=== PATIENT | male | born 1970 | race Caucasian/White ===

== ENCOUNTER 2019-05-25 08:25 | Day surgery (SDC) | payer BC, OTHER ==
[~2019-05-25] VITALS: Ht 167.6 cm; Wt 86.1 kg
[~2019-05-25 08:25] MED LIST: FERROUS SULFATE; MULTIVITAMINS; VITAMIN C
[2019-05-25 09:28] VITALS: Ht 167.6 cm; Wt 86.1 kg
[2019-05-25 09:39] VITALS: BP 138/89; PULSE 66; RESP 18
[2019-05-25] MEDS ORDERED: FENTAnyl 50 MCG/ML VIAL ONE (10:30)
[2019-05-25] MEDS ORDERED: MIDAZOLAM 1 MG/ML 2 ML INJ ONE ×2 (10:31)
[2019-05-25 10:45] VITALS: BP 123/81; RESP 16
--- NOTE | 2019-05-25 19:26 | CONS ---
DATE OF ADMISSION: 05/25/2019 DATE OF CONSULTATION: Dear Dr. London, I thank you very much for this kind referral. HISTORY OF PRESENT ILLNESS: Mr. Ab Camilo is a 48-year-old male patient who has been referred to [facility] for further evaluation of iron deficiency anemia. The patient also gives history of occasional rec spencer bleeding. He has change in the bowel habit and he has been taking fiber. He has lower abdominal pain. No past history of colon neoplasm. The patient never had screening colonoscopy. Appetite is good. No weight loss. No upper abdominal pain. Not on nonsteroidal anti-inflammatory agents. No history of gallstones or liver disease. No history of hypertension or diabetes, no heart disease, brunilda ng problem or kidney disease. SOCIAL HISTORY: Nonsmoker. No alcohol abuse. FAMILY HISTORY: No family history of gastrointestinal tract neoplasm. ALLERGIES: NO DRUG ALLERGIES. MEDICATIONS: 1. Ferrous sulfate. 2. Fiber PHYSICAL EXAMINATION: GENERAL: He is 5 feet 6 inches tall and weighs 192 pounds. HEART: Normal heart sounds. LUNGS: Clear. ABDOMEN: Soft, no masses. Normal bowel sounds. RECTAL: Deferred per the patient's request. It will be done at the time of colonoscopy. NEUROLOGIC: Normal neurological exam. IMPRESSION: 1. Change in the bowel habit. 2. Lower abdominal pain. 3. Occasional rectal bleeding. 4. Iron deficiency anemia. 5. The patient never had screening colonoscopy. PLAN: Colonoscopy for further evaluation. The procedure and possible complications are well explained to the patient. He understands and conse nts to the procedure. I thank you once again. With warmest personal regards, Dictated By: WALTER JEFFREY/JAHAIRA Conf#: [id number] DID#: [id number]
== END 2019-05-25 13:28 | disposition home or self-care (01) ==
LOC: GIL 08:25
PROVIDERS: ATTEND Internal Medicine Gastroenterology
DX: D50.9 Iron deficiency anemia, unspecified (principal); K64.8 Other hemorrhoids
CPT/HCPCS: 45378; J2250; J3010